=== PATIENT | male | born 1970 | race Two or more races ===

== ENCOUNTER → 2019-09-23 | Outpatient (CLI) | payer OTHER ==
[~2019-09-23] MED LIST: LISI-467 PO
== END | disposition home or self-care (01) ==
LOC: CFH 09:17
PROVIDERS: ATTEND Nurse Practitioner Family
DX: R16.1 Splenomegaly, not elsewhere classified (principal); K76.0 Fatty (change of) liver, not elsewhere classified
CPT/HCPCS: 76700

== ENCOUNTER 2019-12-21 07:02 | Day surgery (SDC) | payer OTHER ==
[~2019-12-21] VITALS: Ht 175.3 cm; Wt 88.9 kg
[2019-12-21 07:39] VITALS: BP 129/81
[2019-12-21] MEDS ORDERED: LISI30TA4 PO (07:41)
[2019-12-21] MEDS ORDERED: SODIUM CHLORIDE 0.9% 1,000 ML IV SCH (08:00)
[2019-12-21 08:34] LABS: INTERNATIONAL NORMALIZED RATIO 1.18 (0.93-1.1); PROTHROMBIN TIME 12.2 Seconds (9.6-11.5)
[2019-12-21] MEDS ORDERED: MIDAZOLAM 1 MG/ML, 5ML ONE (09:35)
[2019-12-21] MEDS ORDERED: NALOXONE 1 MG/ML, 2ML ONE (09:35)
[2019-12-21] MEDS ORDERED: FLUMAZENIL 0.1 MG/1 ML, 5ML ONE (09:35)
[2019-12-21] MEDS ORDERED: FENTANYL PF 100 MCG/2ML ONE ×2 (09:35)
[2019-12-21] MEDS ORDERED: KETOROLAC 30 MG/1 ML IVPush ONE (11:00)
== END 2019-12-21 11:30 | disposition home or self-care (01) ==
LOC: OUT 07:02 → EDSTATUS 09:30 → OUT 11:30
PROVIDERS: ATTEND Internal Medicine
DX: R74.8 Abnormal levels of other serum enzymes (principal); K74.60 Unspecified cirrhosis of liver; I10 Essential (primary) hypertension
CPT/HCPCS: 36415; 47000; 77012; 85049; 85610; 88307; 88313; 99156; 99157; J1885; J2250; J3010; J7030; J2310

== ENCOUNTER → 2020-02-09 | Outpatient (CLI) | payer OTHER ==
[~2020-02-09] MED LIST changes: +LISI30TA4 PO
== END | disposition home or self-care (01) ==
LOC: STAR 09:35
PROVIDERS: ATTEND Internal Medicine
DX: Z01.812 Encounter for preprocedural laboratory examination (principal); Z20.828 Contact with and (suspected) exposure to other viral communicable diseases; I85.00 Esophageal varices without bleeding
CPT/HCPCS: 36415; 87635

== ENCOUNTER 2020-02-14 05:26 | Day surgery (SDC) | payer OTHER ==
[~2020-02-14] VITALS: Ht 175.3 cm; Wt 90.0 kg
[2020-02-14] MEDS ORDERED: CHLORHEXIDINE 15 ML UDC MM STA (06:03)
[2020-02-14 06:13] VITALS: BP 123/80
[2020-02-14] MEDS ORDERED: LACTATED RINGERS 1,000 ML IV SCH (06:30)
[2020-02-14] MEDS ORDERED: PROPOFOL 10 MG/ML, 20ML ONE (07:54)
[2020-02-14] MEDS ORDERED: LABETALOL 5MG/ML, 20ML IV PRN (08:30)
[2020-02-14] MEDS ORDERED: ONDANSETRON 2MG/ML, 2ML IVPush PRN (08:30)
[2020-02-14] MEDS ORDERED: hydrALAzine 20 MG/ML, 1ML IV PRN (08:30)
[2020-02-14] MEDS ORDERED: DIAZEPAM 5 MG/ML, 2ML IVPush PRN (08:30)
[2020-02-14] MEDS ORDERED: EPHEDRINE 50 MG/ML, 1ML IVPush PRN (08:30)
[2020-02-14] MEDS ORDERED: OXYcodone 5 MG/5 ML ORAL.SOL UDC PO PRN (08:30)
[2020-02-14] MEDS ORDERED: PROMETHAZINE 25 MG/ML, 1ML IVPush PRN (08:30)
[2020-02-14] MEDS ORDERED: PROMETHAZINE 12.5 MG SUPP PR PRN (08:30)
[2020-02-14] MEDS ORDERED: ALBUTEROL SULFATE 2.5 MG/3 ML NPPB PRN (08:30)
[2020-02-14] MEDS ORDERED: MIDAZOLAM 1 MG/ML, 2ML IV PRN (08:30)
[2020-02-14] MEDS ORDERED: FENTANYL PF 100 MCG/2ML IV PRN (08:30)
[2020-02-14] MEDS ORDERED: HYDROmorphone 1 MG/ML, 1ML INJ IVPush PRN (08:30)
[2020-02-14] MEDS ORDERED: MEPERIDINE/PF 25MG/0.5ML IVPush PRN (08:30)
[2020-02-14] MEDS ORDERED: DIPHENHYDRAMINE 50 MG/ML, 1ML IVPush PRN (08:30)
== END 2020-02-14 09:20 | disposition home or self-care (01) ==
LOC: OUT 05:26
PROVIDERS: ATTEND Internal Medicine
DX: K74.60 Unspecified cirrhosis of liver (principal); I85.10 Secondary esophageal varices without bleeding; K76.6 Portal hypertension; K31.89 Other diseases of stomach and duodenum; I10 Essential (primary) hypertension; E11.9 Type 2 diabetes mellitus without complications; Z79.899 Other long term (current) drug therapy
CPT/HCPCS: 43235; J2704; J7120

== ENCOUNTER → 2020-08-23 | Outpatient (CLI) | payer OTHER | END | disposition home or self-care (01) | LOC: RAD 07:37 | PROVIDERS: ATTEND Internal Medicine | DX: K70.30 Alcoholic cirrhosis of liver without ascites (principal); K76.6 Portal hypertension | CPT/HCPCS: 76700 ==